=== PATIENT | male | born 1990 | race Caucasian/White ===

== ENCOUNTER → 2025-11-06 | Emergency (ER) | payer MEDICAID, OTHER ==
[~2025-11-06] VITALS: Ht 180.3 cm; Wt 87.0 kg
[~2025-11-06] MED LIST: ACET-2247 PO; AMLO-258 PO; ATOR40TA28 PO; FAMO20 PO; GLIM-8 PO; LOPE-232 PO; LOSA-381 PO; METF-1211 PO; OLAN10TA74 PO; OLAN5TAB52 PO; PROP20TA18 PO; SEMA14TA2 PO; SENN-302 PO
[2025-11-06 02:03] VITALS: TEMP 97.8
[2025-11-06 03:33] VITALS: BP 110/64; PULSE 60; RESP 14; O2SAT 98
== END | disposition still patient (30) ==
LOC: EMS 01:27
DX: Z02.89 Encounter for other administrative examinations (principal); E11.9 Type 2 diabetes mellitus without complications; I10 Essential (primary) hypertension; F20.9 Schizophrenia, unspecified; Z79.899 Other long term (current) drug therapy; Z87.820 Personal history of traumatic brain injury; W19.XXXA Unspecified fall, initial encounter
CPT/HCPCS: 82962; 99283